=== PATIENT | female | born 1940 | race Caucasian/White ===

== ENCOUNTER → 2019-08-08 | Outpatient (CLI) | payer OTHER, BC ==
[~2019-08-08] MED LIST: AZULFIDINE500 M1 PO; FLONASE 0.05%50 MCG NASAL; HYDROCODONE-AP1 EAC6 PO; LEVOTHYROXINE 0.1 MG PO; MOBIC15 MG PO; NEXIUM40 MG PO; ZYRTEC10 M5 PO
== END ==
LOC: RAD 01:18
DX: Z12.31 Encounter for screening mammogram for malignant neoplasm of breast (principal)

== ENCOUNTER 2020-04-24 07:43 | Day surgery (SDC) | payer OTHER, BC ==
[~2020-04-24] VITALS: Ht 157.5 cm; Wt 68.0 kg
--- NOTE | ~2020-04-24 | O ---
[facility] [place] [address] OPERATIVE REPORT Name: LUIS VACA Room #: 150-6 [facility]..#: [id number] Admission: 04/24/20 Attend Phys: Lalit Maynard MD Discharge: Date of : 42 Report #: [id number] THIS REPORT FOR: cc: Luba Ontiveros MD,Luba Maynard,Lalit Brownlee MD ~ CC: Luba Maynard DATE OF SERVICE: 04/24/2020 SURGEON: Lalit Maynard MD SENIOR WEB APPLICATIONS DEVELOPER: None. PREOPERATIVE DIAGNOSIS: Bilateral upper lid dermatochalasia with superior visual field defect. POSTOPERATIVE DIAGNOSIS: Bilateral upper lid dermatochalasia with superior visual field defect. OPERATION PERFORMED: Bilateral upper lid functional blepharoplasty. ANESTHESIA: Local with IV sedation. COMPLICATIONS: None. INDICATIONS FOR SURGERY: This patient has acquired upper lid dermatochalasia with superior visual field loss both eyes because of excessive upper lid tissues to include skin and fat. Visual field testing demonstrates dense superior visual defects. Retesting with the upper lid elevated shows an improvement in visual field loss of over 30% and in excess of 12 degrees. The current procedures are undertaken in order to improve the patient's visual function. Informed consent was obtained to include but not limited to the loss of vision, bleeding, infection, scarring, failure to improve the problem and need for further surgery. DESCRIPTION OF OPERATION: The patient was taken to the operating room, where 2% Xylocaine with epinephrine mixed with equal parts of 0.75% Marcaine with Wydase was administered transcutaneously to each upper lid. The patient was then prepped and draped in the usual sterile fashion and a skin-marking pen was then utilized to outline an upper lid crease that was symmetrical on each side. Graefe forceps were then used to quantitate the redundant upper lid skin and it [address] [address] OPERATIVE REPORT Name: LUIS VACA Room #: 150-6 [facility]#: [id number] Admission: 04/24/20 Attend Phys: Lalit Maynard MD Discharge: Date of : 42 Report #: [id number] was similarly outlined. The incisions were then made with Joana scissors and a skin-muscle flap removed from each side with high-temp cautery. Hemostasis was achieved with the monopolar cautery as it was throughout the case. The orbital septum was then identified and the central and medial fat pads were inspected. The redundant soft tissue was then sculpted with the monopolar cautery. The upper lid crease was then reformed with tightening of the pretarsal orbicularis muscle. The upper lid crease was then further reformed with multiple interrupted 6-0 chromic sutures. The skin was then closed with a running 6-0 plain gut suture. The wound was then cleaned and dressed with ophthalmic antibiotic ointment and a nonstick dressing. The patient was transported to the recovery area, where cold compresses were applied, having tolerated the procedure well with no anesthetic or operative complications being noted. By: [id number] Lalit Maynard MD /nt
[~2020-04-24 07:43] MED LIST changes: +ASA81BEC PO; +COZAAR100 MG PO; +DOXYCYCLINE 10100 M2 PO; +LIPITOR40 MG PO; +PRESERVISION A1 EAC2 PO; +VITAMIN D3250 MC1 PO
[2020-04-24 08:43] VITALS: BP 136/76
== END 2020-04-24 11:40 | disposition home or self-care (01) ==
LOC: OR 07:43 → TBA 07:49 → OR 11:16
DX: H02.834 Dermatochalasis of left upper eyelid (principal); H02.831 Dermatochalasis of right upper eyelid; H53.462 Homonymous bilateral field defects, left side; H53.461 Homonymous bilateral field defects, right side; I10 Essential (primary) hypertension; E03.9 Hypothyroidism, unspecified; E78.5 Hyperlipidemia, unspecified; K21.9 Gastro-esophageal reflux disease without esophagitis; Z85.820 Personal history of malignant melanoma of skin; Z98.890 Other specified postprocedural states; Z79.899 Other long term (current) drug therapy; Z88.2 Allergy status to sulfonamides; Z91.041 Radiographic dye allergy status; Z11.59 Encounter for screening for other viral diseases
CPT/HCPCS: 50010; 50101; 50386; 50398; 51636; 56531; 62110; 62850; 70005